=== PATIENT | male | born 1965 | race Caucasian/White ===

== ENCOUNTER 2017-04-16 08:57 | Emergency (ER) | payer OTHER ==
[~2017-04-16] VITALS: Ht 193 cm; Wt 108.0 kg
[2017-04-16] MEDS ORDERED: IV NORMAL SALINE 1000ML BAG 1,000 ML IV ONE (10:00)
[2017-04-16] MEDS ORDERED: DEXAMETHASONE SOD PHOS 20 MG/5 ML VIAL. IV ONE (10:15)
[2017-04-16 10:48] LABS: BASO # 0.1 x10^3/uL (0.0-0.2); BASO % 1 % (0-3); EOS % 2 % (0-3); HEMATOCRIT 49.2 % (39.0-53.0); HEMOGLOBIN 16.2 g/dL (13.0-17.5); LYMPH # 0.7 x10^3/uL (1.0-4.8); LYMPH % 11 % (24-48); MEAN CORPUSCULAR HEMOGLOBIN 30 pg (25-35); MEAN CORPUSCULAR HGB CONC 33 g/dL (31-37); MEAN CORPUSCULAR VOLUME 90 fL (79-100); MONO % 15 % (0-9); NEUT % 70 % (31-73); PLATELET COUNT 178 x10^3/uL (140-400); RED BLOOD COUNT 5.49 x10^6/uL (4.30-5.70); RED CELL DISTRIBUTION WIDTH 14.4 % (11.5-14.5); WHITE BLOOD COUNT 6.3 x10^3/uL (4.0-11.0)
[2017-04-16 10:53] LABS: NEGATIVE OBC STREP NEG; POSITIVE OBC STREP POS
[2017-04-16 10:53] LABS: CALCIUM 9.6 mg/dL (8.5-10.1); GFR 78.2; POTASSIUM 3.9 mmol/L (3.5-5.1)
[2017-04-16 10:55] LABS: C-REACTIVE PROTEIN 13.8 mg/L (0-3.3)
--- NOTE | 2017-04-16 11:15 | PHYS DOC ---
Past Medical History Past Medical History: Other Additional Past Medical Histor: TBI Past Surgical History: No Surgical History Alcohol Use: None Drug Use: None Adult General Chief Complaint Chief Complaint: SORE THROAT HPI HPI Patient is a 52 year old male with no significant medical history who presents today complaining of sore throat with enlarged tonsils for 1 month. Patient states he has been following up with his PCP who put him on 2 antibiotics with no relief. Patient states he is able to tolerate his secretions though it is painful when he swallows. Patient denies any fever. Denies any difficulty breathing. Review of Systems Review of Systems Constitutional: Denies fever or chills [] Eyes: Denies change in visual acuity, redness, or eye pain [] HENT: Reports sore throat and enlarged tonsils. Denies nasal congestion Respiratory: Denies cough or shortness of breath [] Cardiovascular: No additional information not addressed in HPI [] GI: Denies abdominal pain, nausea, vomiting, bloody stools or diarrhea [] : Denies dysuria or hematuria [] Musculoskeletal: Denies back pain or joint pain [] Integument: Denies rash or skin lesions [] Neurologic: Denies headache, focal weakness or sensory changes [] All other systems were reviewed and found to be within normal limits, except as documented in this note. Current Medications Current Medications Current Medications Medications (Trade) Dose Ordered Sig/Bruce Start Time Stop Time Status Last Admin Dose Admin Dexamethasone Sodium Phosphate (Decadron) 10 mg 1X ONCE 04/16/17 10:15 04/16/17 10:26 DC 04/16/17 10:32 10 MG Info (Do NOT chart on this entry -- for MONITORING) 1 each PRN DAILY PRN 04/16/17 11:30 04/16/17 14:20 DC Iohexol (Omnipaque 300 Mg/ml) 70 ml 1X ONCE 04/16/17 11:30 04/16/17 11:31 DC 04/16/17 11:21 70 ML Sodium Chloride 1,000 ml @ 1,000 mls/hr 1X ONCE 04/16/17 10:00 04/16/17 10:59 DC 04/16/17 10:27 1,000 MLS/HR Allergies Allergies Allergies Coded Allergies Type Severity Reaction Last Updated Verified No Known Drug Allergies 04/16/17 No Physical Exam Physical Exam Constitutional: Well developed, well nourished, no acute distress, non-toxic appearance. [] HENT: Normocephalic, atraumatic, bilateral external ears normal, oropharynx moist, no oral exudates, nose normal. [] Posterior pharynx with +2 is tonsils with no exudate. +2 anterior cervical adenopathy worse on the right side. Eyes: PERRLA, EOMI, conjunctiva normal, no discharge. [] Neck: Normal range of motion, no tenderness, supple, no stridor. [] Cardiovascular:Heart rate regular rhythm, no murmur [] Lungs & Thorax: Bilateral breath sounds clear to auscultation [] Abdomen: Bowel sounds normal, soft, no tenderness, no masses, no pulsatile masses. [] Skin: Warm, dry, no erythema, no rash. [] Back: No tenderness, no CVA tenderness. [] Extremities: No tenderness, no cyanosis, no clubbing, ROM intact, no edema. [] Neurologic: Alert and oriented X 3, normal motor function, normal sensory function, no focal deficits noted. [] Psychologic: Affect normal, judgement normal, mood normal. [] Current Patient Data Vital Signs Vital Signs Date Time Temp Pulse Resp B/P (MAP) Pulse Ox O2 Delivery O2 Flow Rate FiO2 04/16/17 13:40 88 18 114/74 (87) 98 Room Air 04/16/17 09:40 98.9 98.9 Lab Values Laboratory Tests Test 04/16/17 09:45 04/16/17 10:20 Group A Streptococcus Rapid Negative (NEGATIVE) White Blood Count 6.3 x10^3/uL (4.0-11.0) Red Blood Count 5.49 x10^6/uL (4.30-5.70) Hemoglobin 16.2 g/dL (13.0-17.5) Hematocrit 49.2 % (39.0-53.0) Mean Corpuscular Volume 90 fL (79-100) Mean Corpuscular Hemoglobin 30 pg (25-35) Mean Corpuscular Hemoglobin Concent 33 g/dL (31-37) Red Cell Distribution Width 14.4 % (11.5-14.5) Platelet Count 178 x10^3/uL (140-400) Neutrophils (%) (Auto) 70 % (31-73) Lymphocytes (%) (Auto) 11 % (24-48) L Monocytes (%) (Auto) 15 % (0-9) H Eosinophils (%) (Auto) 2 % (0-3) Basophils (%) (Auto) 1 % (0-3) Neutrophils # (Auto) 4.4 x10^3uL (1.8-7.7) Lymphocytes # (Auto) 0.7 x10^3/uL (1.0-4.8) L Monocytes # (Auto) 0.9 x10^3/uL (0.0-1.1) Eosinophils # (Auto) 0.1 x10^3/uL (0.0-0.7) Basophils # (Auto) 0.1 x10^3/uL (0.0-0.2) Erythrocyte Sedimentation Rate 9 (0-15) Sodium Level 141 mmol/L (136-145) Potassium Level 3.9 mmol/L (3.5-5.1) Chloride Level 102 mmol/L (98-107) Carbon Dioxide Level 30 mmol/L (21-32) Anion Gap 9 (6-14) Blood Urea Nitrogen 16 mg/dL (8-26) Creatinine 1.0 mg/dL (0.7-1.3) Estimated GFR (Cockcroft-Gault) 78.2 Glucose Level 117 mg/dL (70-99) H Calcium Level 9.6 mg/dL (8.5-10.1) C-Reactive Protein, Quantitative 13.8 mg/L (0-3.3) H Laboratory Tests 04/16/17 10:20 Laboratory Tests 04/16/17 10:20 EKG EKG [] Radiology/Procedures Radiology/Procedures []PROCEDURE: CT SOFT TISSUE NECK W/CONTRAST CT neck with contrast Indication: Tonsillar swelling. A small peritonsillar abscess. Technique: CT of the neck with 70 mL of Omnipaque 300 with multi planar reformats. Comparison: None Findings: Postsurgical changes are seen in the frontal bone with encephalomalacia of the bilateral frontal lobes. No midline shift. There is dilation of the frontal horns of the bilateral lateral ventricles. The orbits are within normal limits. No enhancing brain lesion. There is soft tissue mass in the right aspect of the oropharynx extending to the supraglottic larynx measuring 2.8 x 3.1 x 4.1 cm. There is nodular thickening of the right free edge of the epiglottis and right valleculae and extending into the right paraglottic space. There is erosion of the right aspect of the hyoid bone (series 2 image 37). Enlarged right level 2A lymph node noted measuring 3.2 x 2.8 cm (series 2 image 44). There is no loculated fluid collection in the neck soft tissue. Centrally low attenuating lymph nodes are seen in in the right neck. The nasopharynx is within normal limits. The neck vasculature is patent. There is significant narrowing of the distal right internal jugular vein secondary to mass effect from the right cervical lymph nodes. The submandibular glands, parotid glands and thyroid are within normal limits. Visualized lung apices are clear. No suspicious bony lesion. Mild multilevel degenerative changes in the spine. Impression: 1. Right-sided oropharyngeal and supraglottic mass as described above with right cervical lymphadenopathy concerning for malignancy likely squamous cell carcinoma. No loculated fluid collections suggest abscess. 2. Extensive post surgical changes in the frontal bone with bilateral frontal lobe encephalomalacia. Clinically correlate with previous history of trauma or ischemic infarct. PQRS Compliance Statement: One or more of the following individualized dose reduction techniques were utilized for this examination: 1. Automated exposure control 2. Adjustment of the mA and/or kV according to patient size 3. Use of iterative reconstruction technique DICTATED and SIGNED BY: JOSH GRIMES DO DATE: 04/16/17 1142 CC: JENNIFER IGNACIO MD; NEPTALI NATH APRN; NON,STAFF ~ Course & Med Decision Making Course & Med Decision Making Pertinent Labs and Imaging studies reviewed. (See chart for details) Patient is in the ED with enlarged tonsils and a sore throat for 4 weeks. He has been tried on 2 antibiotics with no relief. CT of the neck soft tissue was noted for right-sided oropharyngeal and supraglottic mass with right cervical lymphadenopathy concerning for malignancy likely squamous cell carcinoma. No loculated fluid collections suggest abscess. 13:[address] Marrero who requested we consult PCP and she will consult him as an out patient 13:[address] Marcy Ignacio and she will f/u with patient in the clinic. Dragon Disclaimer Dragon Disclaimer This electronic medical record was generated, in whole or in part, using a voice recognition dictation system. 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 Please contact Dr. Marcy Ignacio today and set up a follow up appointment Return to the Ed if your symptoms worsen. Please consider smoking cessation. Scripts Prednisone (PREDNISONE) 50 Mg Tablet 1 TAB PO DAILY, #5 TAB Prov: NEPTALI NATH APRN 04/16/17 Problem Qualifiers NEPTALI NATH APRN Apr 16, 2017 11:15
[2017-04-16] MEDS ORDERED: IOHEXOL 300 MG/ML 100ML VIAL. IV ONE (11:30)
[2017-04-16] MEDS ORDERED: CONTRAST GIVEN MC PRN (11:30)
--- NOTE | 2017-04-16 12:05 | RAD ---
CT neck with contrast Indication: Tonsillar swelling. A small peritonsillar abscess. Technique: CT of the neck with 70 mL of Omnipaque 300 with multi planar reformats. Comparison: None Findings: Postsurgical changes are seen in the frontal bone with encephalomalacia of the bilateral frontal lobes. No midline shift. There is dilation of the frontal horns of the bilateral lateral ventricles. The orbits are within normal limits. No enhancing brain lesion. There is soft tissue mass in the right aspect of the oropharynx extending to the supraglottic larynx measuring 2.8 x 3.1 x 4.1 cm. There is nodular thickening of the right free edge of the epiglottis and right valleculae and extending into the right paraglottic space. There is erosion of the right aspect of the hyoid bone (series 2 image 37). Enlarged right level 2A lymph node noted measuring 3.2 x 2.8 cm (series 2 image 44). There is no loculated fluid collection in the neck soft tissue. Centrally low attenuating lymph nodes are seen in in the right neck. The nasopharynx is within normal limits. The neck vasculature is patent. There is significant narrowing of the distal right internal jugular vein secondary to mass effect from the right cervical lymph nodes. The submandibular glands, parotid glands and thyroid are within normal limits. Visualized lung apices are clear. No suspicious bony lesion. Mild multilevel degenerative changes in the spine. Impression: 1. Right-sided oropharyngeal and supraglottic mass as described above with right cervical lymphadenopathy concerning for malignancy likely squamous cell carcinoma. No loculated fluid collections suggest abscess. 2. Extensive post surgical changes in the frontal bone with bilateral frontal lobe encephalomalacia. Clinically correlate with previous history of trauma or ischemic infarct. PQRS Compliance Statement: One or more of the following individualized dose reduction techniques were utilized for this examination: 1. Automated exposure control 2. Adjustment of the mA and/or kV according to patient size 3. Use of iterative reconstruction technique
[2017-04-16 13:40] VITALS: BP 114/74
[2017-04-16] MEDS ORDERED: PRED50TA PO (13:48)
== END 2017-04-16 14:01 | disposition home or self-care (01) ==
LOC: ER 08:57
DX: D09.8 Carcinoma in situ of other specified sites (principal); F17.200 Nicotine dependence, unspecified, uncomplicated; J35.1 Hypertrophy of tonsils; Z87.820 Personal history of traumatic brain injury
CPT/HCPCS: 36415; 70491; 80048; 85025; 85651; 86140; 87070; 87880; 96374; 99285; J1100; J7030; Q9967

== ENCOUNTER 2017-06-09 11:55 | Inpatient (IN) | payer OTHER ==
[2017-06-09] MEDS ORDERED: ONDANSETRON ODT 4 MG TAB.RAPDIS. PO (14:00)
[2017-06-09 14:32] LABS: ADD MAN DIFF? NO
[2017-06-09 14:38] LABS: BASO % 0 % (0-3); EOS # 0.1 x10^3/uL (0.0-0.7); EOS % 0 % (0-3); HEMATOCRIT 38.9 % (39.0-53.0); HEMOGLOBIN 13.1 g/dL (13.0-17.5); LYMPH # 0.9 x10^3/uL (1.0-4.8); LYMPH % 7 % (24-48); MEAN CORPUSCULAR HEMOGLOBIN 30 pg (25-35); MEAN CORPUSCULAR HGB CONC 34 g/dL (31-37); MEAN CORPUSCULAR VOLUME 88 fL (79-100); MONO # 1.1 x10^3/uL (0.0-1.1); MONO % 8 % (0-9); NEUT # 11.5 x10^3uL (1.8-7.7); NEUT % 85 % (31-73); PLATELET COUNT 287 x10^3/uL (140-400); RED BLOOD COUNT 4.42 x10^6/uL (4.30-5.70); RED CELL DISTRIBUTION WIDTH 14.5 % (11.5-14.5); WHITE BLOOD COUNT 13.5 x10^3/uL (4.0-11.0)
[2017-06-09 14:47] LABS: PROTHROMBIN TIME PATIENT 12.7 SEC (11.7-14.0)
[2017-06-09 14:53] LABS: ALBUMIN 2.9 g/dL (3.4-5.0); ALBUMIN/GLOBULIN RATIO 0.8 (1.0-1.7); ALK PHOS 71 U/L (46-116); ALT (SGPT) 40 U/L (16-63); ANION GAP 10 (6-14); AST (SGOT) 15 U/L (15-37); BLOOD UREA NITROGEN 26 mg/dL (8-26); BUN/CREATININE RATIO 26 (6-20); CALCIUM 9.2 mg/dL (8.5-10.1); CARBON DIOXIDE 29 mmol/L (21-32); CHLORIDE 99 mmol/L (98-107); GFR 78.2; GLUCOSE 116 mg/dL (70-99); SODIUM 138 mmol/L (136-145); TOTAL BILIRUBIN 0.3 mg/dL (0.2-1.0); TOTAL PROTEIN 6.7 g/dL (6.4-8.2)
[2017-06-09] MEDS: ACETAMINOPHEN 500 MG TABLET PO (23:14)
[2017-06-10] MEDS: cefTRIAXone IV Push 1 GM VIAL. IVP (12:00)
[2017-06-10] MEDS: AMINO AC 3%/ELECTROLYTE/GLYCER 1,000 ML IV (12:00)
[2017-06-10] MEDS: diphenhydrAMINE 50 MG/ML VIAL IV ×2 (14:44→15:32)
[2017-06-10] MEDS ORDERED: LORazepam 0.5 MG TABLET PO (14:49)
[2017-06-10] MEDS ORDERED: diphenhydrAMINE 50 MG/ML VIAL (15:31)
[2017-06-10] MEDS ORDERED: MIDAZOLAM HCL/PF 5 MG/5 ML VIAL. (15:31)
[2017-06-10] MEDS ORDERED: fentaNYL PF VIAL 100 MCG/2 ML VIAL (15:31)
[2017-06-10] MEDS: MIDAZOLAM HCL/PF 5 MG/5 ML VIAL. IV ×4 (15:34→15:49)
[2017-06-10] MEDS: fentaNYL PF VIAL 100 MCG/2 ML VIAL IV ×2 (15:36→15:46)
[2017-06-10] MEDS: LANSOPRAZOLE 30 MG TAB.RAP.DR FT (18:53)
[2017-06-11 05:30] LABS: BASO % 0 % (0-3); EOS # 0.1 x10^3/uL (0.0-0.7); EOS % 0 % (0-3); LYMPH # 0.6 x10^3/uL (1.0-4.8); LYMPH % 4 % (24-48); MEAN CORPUSCULAR HEMOGLOBIN 30 pg (25-35); MEAN CORPUSCULAR HGB CONC 34 g/dL (31-37); MEAN CORPUSCULAR VOLUME 88 fL (79-100); MONO # 0.7 x10^3/uL (0.0-1.1); MONO % 5 % (0-9); NEUT % 91 % (31-73); PLATELET COUNT 252 x10^3/uL (140-400); RED BLOOD COUNT 4.31 x10^6/uL (4.30-5.70); RED CELL DISTRIBUTION WIDTH 14.4 % (11.5-14.5); WHITE BLOOD COUNT 15.3 x10^3/uL (4.0-11.0)
[2017-06-11 05:33] LABS: ADD MAN DIFF? YES
[2017-06-11 05:46] LABS: ANION GAP 7 (6-14); BLOOD UREA NITROGEN 21 mg/dL (8-26); CALCIUM 8.6 mg/dL (8.5-10.1); CARBON DIOXIDE 29 mmol/L (21-32); CHLORIDE 100 mmol/L (98-107); CREATININE 0.9 mg/dL (0.7-1.3); GFR 88.3; GLUCOSE 118 mg/dL (70-99); POTASSIUM 4.3 mmol/L (3.5-5.1); SODIUM 136 mmol/L (136-145)
[2017-06-11] MEDS: AMINO AC 3%/ELECTROLYTE/GLYCER 1,000 ML IV (06:16)
[2017-06-11 09:10] LABS: % BANDS 11 % (0-9); % LYMPHS 2 % (24-48); % MONOS 5 % (0-10); % SEGS 82 % (35-66)
[2017-06-11 09:11] LABS: PLT ESTIMATE ADEQUATE (ADEQUATE); POLYCHROMASIA SLIGHT
[2017-06-11] MEDS: LANSOPRAZOLE 30 MG TAB.RAP.DR FT (09:16)
[2017-06-11] MEDS: cefTRIAXone IV Push 1 GM VIAL. IVP (13:47)
== END 2017-06-11 18:33 | disposition home health service (06) | DRG 380 ==
LOC: 6 SOUTH 11:55
PROC: 0DH63UZ Insertion of Feeding Device into Stomach, Percutaneous Approach (ICD-10-PCS; principal; 2017-06-10 15:48)
PROC: 0DB78ZX Excision of Stomach, Pylorus, Via Natural or Artificial Opening Endoscopic, Diagnostic (ICD-10-PCS; 2017-06-10 15:48)
DX: K22.10 Ulcer of esophagus without bleeding (principal); E43 Unspecified severe protein-calorie malnutrition; R13.10 Dysphagia, unspecified; Z93.0 Tracheostomy status; K26.9 Duodenal ulcer, unspecified as acute or chronic, without hemorrhage or perforation; C09.9 Malignant neoplasm of tonsil, unspecified; C10.9 Malignant neoplasm of oropharynx, unspecified; G93.89 Other specified disorders of brain; C32.9 Malignant neoplasm of larynx, unspecified; E78.00 Pure hypercholesterolemia, unspecified; E78.5 Hyperlipidemia, unspecified; Y84.2 Radiological procedure and radiotherapy as the cause of abnormal reaction of the patient, or of later complication, without mention of misadventure at the time of the procedure; Z82.49 Family history of ischemic heart disease and other diseases of the circulatory system; Z85.818 Personal history of malignant neoplasm of other sites of lip, oral cavity, and pharynx; Z87.891 Personal history of nicotine dependence; Z68.25 Body mass index [BMI] 25.0-25.9, adult
CPT/HCPCS: 36415; 77386; 80048; 80053; 85007; 85025; 85610; 97161-GP; 97165-GO; J0690; J0696; J1200; J2250; J3010

== ENCOUNTER 2017-11-25 06:45 | Emergency (ER) | payer OTHER | END 2017-11-25 08:31 | disposition home or self-care (01) | LOC: ER 06:45 | DX: Z43.0 Encounter for attention to tracheostomy (principal); Z87.820 Personal history of traumatic brain injury | CPT/HCPCS: 31502; 99284-25 ==

== ENCOUNTER → 2017-12-06 | Day surgery (SDC) | payer OTHER ==
[~2017-12-06] MED LIST: LIDOCAINE 1% PF 2 ML VIAL. ID; MIDAZOLAM HCL/PF 2 MG/2 ML VIAL. IV; PROPOFOL 40 ML IV; fentaNYL PF VIAL 100 MCG/2 ML VIAL IV
[2017-12-06] MEDS: IV RINGERS,LACTATED 1000ML 1,000 ML IV ×2 (12:17)
== END | disposition home or self-care (01) ==
LOC: SURG 11:34
DX: K21.0 Gastro-esophageal reflux disease with esophagitis (principal); Z46.59 Encounter for fitting and adjustment of other gastrointestinal appliance and device (principal); K29.50 Unspecified chronic gastritis without bleeding; Z85.01 Personal history of malignant neoplasm of esophagus; E78.5 Hyperlipidemia, unspecified; Z87.891 Personal history of nicotine dependence; Z79.899 Other long term (current) drug therapy; E78.00 Pure hypercholesterolemia, unspecified; Z85.818 Personal history of malignant neoplasm of other sites of lip, oral cavity, and pharynx; Z93.0 Tracheostomy status
CPT/HCPCS: 43239; 43247; 88305; 88342; J2704

== ENCOUNTER 2018-02-04 07:51 | Outpatient (CLI) | payer OTHER ==
[2018-02-04] VITALS (9 sets, daily range): BP systolic 103–141; BP diastolic 63–81
[~2018-02-04] VITALS: Ht 193 cm; Wt 111.1 kg
[~2018-02-04 07:51] MED LIST changes: +ATOR20TA58 PO; +HYDR15SO4 PO; -LIDOCAINE 1% PF 2 ML VIAL. ID; -MIDAZOLAM HCL/PF 2 MG/2 ML VIAL. IV; +PRED50TA PO; -PROPOFOL 40 ML IV; -fentaNYL PF VIAL 100 MCG/2 ML VIAL IV
[2018-02-04 08:17] LABS: BASO % 0 % (0-3); EOS % 0 % (0-3); HEMATOCRIT 36.9 % (39.0-53.0); HEMOGLOBIN 12.2 g/dL (13.0-17.5); LYMPH # 0.4 x10^3/uL (1.0-4.8); LYMPH % 3 % (24-48); MEAN CORPUSCULAR HEMOGLOBIN 29 pg (25-35); MEAN CORPUSCULAR HGB CONC 33 g/dL (31-37); MEAN CORPUSCULAR VOLUME 89 fL (79-100); MONO # 0.6 x10^3/uL (0.0-1.1); MONO % 5 % (0-9); NEUT # 12.4 x10^3uL (1.8-7.7); NEUT % 92 % (31-73); PLATELET COUNT 216 x10^3/uL (140-400); RED BLOOD COUNT 4.17 x10^6/uL (4.30-5.70); RED CELL DISTRIBUTION WIDTH 15.8 % (11.5-14.5); WHITE BLOOD COUNT 13.4 x10^3/uL (4.0-11.0)
[2018-02-04] MEDS ORDERED: magic mouthwash SWSW (08:18)
[2018-02-04] MEDS ORDERED: [UNRECOGNIZED DRUG - REMARK] INT TRAC (08:18)
[2018-02-04] MEDS ORDERED: ONDA8TAB9 PO (08:18)
[2018-02-04] MEDS ORDERED: DOXY50CA PO (08:18)
[2018-02-04] MEDS ORDERED: ASCO500T2 PO (08:18)
[2018-02-04] MEDS ORDERED: CHOL10003 PO (08:18)
[2018-02-04 08:26] LABS: PROTHROMBIN TIME PATIENT 12.5 SEC (11.7-14.0)
[2018-02-04] MEDS ORDERED: HEPARIN PF 500 UNIT/5 ML DISP.SYRIN. IV ONE ×2 (09:10→09:45)
[2018-02-04] MEDS ORDERED: LIDOCAINE 1%/EPI 1:100,000 20 ML VIAL. ONE (09:10)
[2018-02-04] MEDS ORDERED: fentaNYL PF VIAL 100 MCG/2 ML VIAL ONE (09:21)
[2018-02-04] MEDS ORDERED: MIDAZOLAM HCL/PF 2 MG/2 ML VIAL. ONE (09:21)
[2018-02-04] MEDS ORDERED: MIDAZOLAM HCL/PF 2 MG/2 ML VIAL. IV ONE (09:45)
[2018-02-04] MEDS ORDERED: LIDOCAINE 1%/EPI 1:100,000 20 ML VIAL. IJ ONE (09:45)
[2018-02-04] MEDS ORDERED: fentaNYL PF VIAL 100 MCG/2 ML VIAL IV ONE (09:45)
--- NOTE | 2018-02-04 10:08 | PDOC ---
MODERATE SEDATION ASSESSMENT RISKS/ALTERNATIVES Risks/Alternatives Risks and alternatives of this type of sedation and procedure discussed with: RISK/ALTERNATIVES: Patient H & P ON CHART H & P H & P on chart and reviewed for co-morbid conditions and appropriate labs. H&P ON CHART: Yes STATUS PREG STATUS ASSESSED: Yes MEDS/ALLERGIES REVIEWED Meds/Allergies Reviewed Medications and Allergies including time and route of recently administered narcotics and sedatives. MEDS/ALLERGIES REVIEWED: Yes ASA RATING ASA RATING: II AIRWAY ASSESSMENT Airway Assessment Airway patency, oral function limitations, presence of caps, crowns, dentures, partials, and ability to extend neck assessed. AIRWAY ASSESSMENT: Yes MALLAMPATI SCORE MALLAMPATI SCORE: II PRE-SEDATION ASSESSMENT PRE-SEDATION ASSESSMENT: Yes BRYSON TYLER MD Feb 04, 2018 10:08
--- NOTE | 2018-02-04 10:09 | PDOC ---
BRIEF OPERATIVE NOTE Pre-Op Diagnosis esophageal cancer Post-Op Diagnosis same Procedure Performed Port Surgeon Deann Anesthesia Type: Conscious Sedation Findings right IJ port Complications no immediate BRYSON TYLER MD Feb 04, 2018 10:08
--- NOTE | 2018-02-04 10:10 | PDOC1 ---
History and Physical Date of Procedure Date of Admission History of Present Illness Reason for Visit Adult with esophageal cancer Past Medical History Past Medical History see nursing pre-op assessment Current Medications Current Medications Current Medications Lidocaine/ Epinephrine (LIDOCAINE 1%-EPI 1:100,000 Multi-Dose) 20 ml STK-MED ONCE .ROUTE ; Start 02/04/18 at 09:10; Stop 02/04/18 at 09:11; Status DC Heparin Sodium (Porcine) (Hep Lock Adult) 500 unit STK-MED ONCE IV ; Start 02/04 at 09:10; Stop 02/04/18 at 09:11; Status DC Midazolam HCl (Versed) 2 mg STK-MED ONCE .ROUTE ; Start 02/04/18 at 09:21; Stop 02/04/18 at 09:22; Status DC Fentanyl Citrate (Fentanyl 2ml Vial) 100 mcg STK-MED ONCE .ROUTE ; Start at 09:21; Stop 02/04/18 at 09:22; Status DC Cefazolin Sodium/ Dextrose 50 ml @ As Directed STK-MED ONCE IV ; Start 02/04/18 at 09:22; Stop 02/04/18 at 09:23; Status DC Midazolam HCl (Versed) 2 mg 1X ONCE IV Last administered on 02/04/18at 09:45; Start 02/04/18 at 09:45; Stop 02/04/18 at 09:46; Status DC Fentanyl Citrate (Fentanyl 2ml Vial) 100 mcg 1X ONCE IV Last administered on at 09:45; Start 02/04/18 at 09:45; Stop 02/04/18 at 09:46; Status DC Lidocaine/ Epinephrine (LIDOCAINE 1%-EPI 1:100,000 Multi-Dose) 20 ml 1X ONCE IJ Last administered on 02/04/18at 09:45; Start 02/04/18 at 09:45; Stop at 09:46; Status DC Heparin Sodium (Porcine) (Hep Lock Adult) 500 unit 1X ONCE IV Last administered on 02/04/18at 09:45; Start 02/04/18 at 09:45; Stop 02/04/18 at 09:46 ; Status DC Cefazolin Sodium/ Dextrose 50 ml @ 100 mls/hr 1X ONCE IV Last administered on 02/04/18at 09:57; Start 02/04/18 at 10:00; Stop 02/04/18 at 10:29 Active Scripts Active Reported Vitamin C (Ascorbic Acid) 500 Mg Tablet 500 Mg PO DAILY Zofran (Ondansetron Hcl) 8 Mg Tablet 1 Tab PO Q8HRS PRN Doxycycline Hyclate 50 Mg Capsule 1 Cap PO BID [magic mouthwash] 10 Ml SWSW TID PRN PRN Vitamin D3 (Cholecalciferol (Vitamin D3)) 1,000 Unit Tablet 1 Tab PO DAILY [mucus solvent] 1-2 Sprays INT TRAC Q1HR PRN Atorvastatin Calcium 20 Mg Tablet 20 Mg PO HS Allergies Allergies: Coded Allergies: No Known Drug Allergies (Unverified , 12/06/17) Physical Exam Vital Signs Vital Signs Date Time Temp Pulse Resp B/P (MAP) Pulse Ox O2 Delivery O2 Flow Rate FiO2 02/04/18 09:45 14 02/04/18 08:39 Room Air 02/04/18 08:25 98.1 72 117/68 (84) 96 98.1 Other see nursing pre-op assessment Assessment Assessment esophageal cancer Plan Plan BRYSON Singh MD Feb 04, 2018 10:10
[2018-02-04 11:04] LABS: % BANDS 2 % (0-9); % LYMPHS 1 % (24-48); % MONOS 2 % (0-10); % SEGS 95 % (35-66)
[2018-02-04 11:05] LABS: PLT ESTIMATE ADEQUATE (ADEQUATE)
--- NOTE | 2018-02-04 16:13 | RAD ---
Procedure: Port-A-Cath placement Clinical Indication: 52-year-old with esophageal cancer Sedation: Conscious sedation was administered with a total intraprocedural [id number] time of 34 minutes. The patient was monitored by a qualified independent observer throughout the time of sedation. Please refer to the medical record for exact doses of medications utilized to achieve moderate sedation. Antibiotics: Antibiotic was administered intravenously within 1 hour of the procedure start time. Exposure: Fluoro Time: 1.5 minutes Images: 1 Contrast: None Sterility: All elements of maximal sterile barrier technique including the use of a cap, mask, sterile gown, sterile gloves, large sterile sheet, appropriate hand hygiene, and 2% chlorhexidine for cutaneous antisepsis (or acceptable alternative antiseptic per current guidelines) were followed for this procedure. Consent: The procedure was explained in its entirety to the patient or the patients designated community representative by a member of the treatment team, including a discussion of the risks, benefits and commonly accepted alternatives to the procedure, as well as the expected consequences of no therapy whatsoever. Discussion of the risks included, but was not limited to, those that are most frequent and those that are rare but possibly severe or life-threatening, as well as the possibility of unforeseen complications. Technique and Findings: Ultrasound interrogation of the right neck revealed patency and compressibility of the internal jugular vein. A hardcopy ultrasound image was recorded as a 21-gauge micropuncture needle was used to gain access to this vessel. The needle was exchanged over a wire for a peel-away sheath. The skin over the ipsilateral anterior chest wall was then copiously anesthetized with 1% lidocaine plus epinephrine, and a small dermatotomy was made. Blunt dissection techniques were used to create a pocket for the port. The port was then tunneled subcutaneously towards the neck dermatotomy then deployed under fluoroscopic guidance through the peel-away sheath such that the distal tip resided in the proximal right atrium. The port was accessed and found to flush and aspirate with ease. The port was packed with heparin. The pocket was copiously irrigated with sterile saline then closed with deep interrupted and running subcuticular 4-0 Vicryl suture. Dermabond was used to close the neck dermatotomy. Complications: No immediate Impression: 1. Ultrasound and fluoroscopic guided placement of a right IJ Port-A-Cath as described
== END 2018-02-04 12:35 | disposition home or self-care (01) ==
LOC: INTRAD 07:51
PROVIDERS: ATTEND Internal Medicine Hematology & Oncology
DX: C15.9 Malignant neoplasm of esophagus, unspecified (principal); C10.9 Malignant neoplasm of oropharynx, unspecified; Z79.01 Long term (current) use of anticoagulants
CPT/HCPCS: 36415; 36561; 76937; 77001; 85025; 85610; 99152; 99153; C1769; C1788; C1892; J0690; J2250; J3010; J3490; 85007; C1751